=== PATIENT | female | born 2000 ===

== ENCOUNTER 2021-08-20 18:19 | Emergency (ER) | payer SELFPAY ==
[2021-08-20 18:35] VITALS: BP 135/80; PULSE 128; RESP 18; TEMP 37.1; O2SAT 98
[2021-08-20 20:23] VITALS: BP 117/67; PULSE 115; TEMP 39.4; O2SAT 100
--- NOTE | 2021-08-20 21:26 | PC.NURSE ---
Pt approached triage desk and states I just wanted to let you know that I'm going home. I'll come back tomorrow if I need to . Pt educated on risks of leaving before seeing provider and benefits of staying. Pt ambulated out of ED with steady gait.
== END 2021-08-21 03:19 | disposition left against medical advice (07) ==
LOC: ANHED 21:36
DX: Z53.21 Procedure and treatment not carried out due to patient leaving prior to being seen by health care provider (principal)
CPT/HCPCS: 99199